=== PATIENT | female | born 1985 | race Asian ===

== ENCOUNTER 2017-04-02 02:56 | Emergency (ER) | payer MEDICARE ==
[~2017-04-02 02:56] MED LIST: BOSE125T PO; HYDR200T PO; MACI10TA PO; PRED1TAB PO; SELEXIPAG; SPIR25TA PO; TADA20TA33 PO; TREP1.743 INH
[2017-04-02] MEDS ORDERED: DIPHENHYDRAMINE 25 MG CAPSULE ONE (05:21)
[2017-04-02] MEDS ORDERED: DIPHENHYDRAMINE 50 MG CAPSULE ONE (05:22)
== END 2017-04-02 13:34 | disposition home or self-care (01) ==
LOC: ED 03:40
DX: T78.40XA Allergy, unspecified, initial encounter (principal); R21 Rash and other nonspecific skin eruption; I27.2 Other secondary pulmonary hypertension; X58.XXXA Exposure to other specified factors, initial encounter
CPT/HCPCS: 99283

== ENCOUNTER 2017-10-26 07:24 | Emergency (ER) | payer MEDICARE ==
[~2017-10-26] VITALS: Ht 170.2 cm; Wt 92.4 kg
[~2017-10-26 07:24] MED LIST changes: -HYDR200T PO; +HYDR200T72 PO
[2017-10-26] MEDS ORDERED: HYDR200T72 PO (07:55)
[2017-10-26 09:37] VITALS: BP 130/77
== END 2017-10-26 09:38 | disposition home or self-care (01) ==
LOC: ED 09:32
DX: J18.9 Pneumonia, unspecified organism (principal); J02.9 Acute pharyngitis, unspecified
CPT/HCPCS: 71046; 87081; 87880; 93005; 99285

== ENCOUNTER 2018-09-01 04:38 | Emergency (ER) | payer MEDICARE ==
[~2018-09-01] VITALS: Ht 170.2 cm; Wt 81.0 kg
--- NOTE | 2018-09-01 05:00 | NUR ---
HAVING CHEST DISCOMFORT D/T COUGH FOR ONE WEEK VSS STABLE PT STATED PT HAVING CHEST DISCOMFORT WHEN DEEP BREATHING OR COUGH KIRAN MARTI AT BED SIDE FOR ER EVAL
[2018-09-01] MEDS ORDERED: KETOROLAC 30 MG/1 ML ONE (05:13)
[2018-09-01] MEDS ORDERED: ONDANSETRON 2MG/ML, 2ML ONE (05:13)
[2018-09-01 05:26] LABS: BASOPHILS # (AUTO) 0.01 x10^3/uL (0-0.1); BASOPHILS % (AUTO) 0 % (0-1); EOSINOPHILS # (AUTO) 0.12 x10^3/uL (0-0.4); EOSINOPHILS % (AUTO) 2 % (1-7); LYMPHOCYTES # (AUTO) 0.87 x10^3/uL (1-3.4); LYMPHOCYTES % (AUTO) 17 % (22-44); MD NO; MEAN CORPUSCULAR HEMOGLOBIN 20.2 pg (27.0-34.8); MEAN CORPUSCULAR VOLUME 65.1 fL (80-100); MEAN PLATELET VOLUME 8.2 fL (7.4-10.4); MONOCYTES # (AUTO) 0.37 x10^3/uL (0.2-0.8); MONOCYTES % (AUTO) 7 % (2-9); NEUTROPHILS # (AUTO) 3.81 x10^3/uL (1.8-6.8); NEUTROPHILS % (AUTO) 74 % (42-75); PLATELET COUNT 162 x10^3/uL (130-400); RED BLOOD COUNT 4.43 x10^6/uL (3.82-5.3); RED CELL DISTRIBUTION WIDTH 18.5 % (9.6-15.2)
[2018-09-01] MEDS ORDERED: SODIUM CHLORIDE FLUSH 10ML SYR IVF ONE (05:30)
[2018-09-01] MEDS ORDERED: ONDANSETRON 2MG/ML, 2ML IVPush ONE (05:30)
[2018-09-01] MEDS ORDERED: KETOROLAC 30 MG/1 ML IVPush ONE (05:30)
--- NOTE | 2018-09-01 05:34 | NUR ---
GIVEN ALL MEDS PT IS RESTING
[2018-09-01 05:37] LABS: ALBUMIN 2.8 g/dL (3.4-5.0); ANION GAP 7 mmol/L (5-15); CALCIUM 8.4 mg/dL (8.5-10.1); CHLORIDE 110 mmol/L (98-107); CREATININE 0.76 mg/dL (0.55-1.02)
[2018-09-01 05:40] LABS: TROPONIN I 0.018 ng/mL (0.000-0.045)
--- NOTE | 2018-09-01 06:30 | NUR ---
GIVEN DC INSTRUCTION IV WAS OUT PT UNDERSTOOD PT UP AMBULATED TO CHECK OUT WITH FAMILY
[2018-09-01 06:31] VITALS: BP 116/62
== END 2018-09-01 06:33 | disposition home or self-care (01) ==
LOC: ED 06:23
DX: R07.89 Other chest pain (principal); B34.9 Viral infection, unspecified; I10 Essential (primary) hypertension
CPT/HCPCS: 36415; 71046; 80048; 82040; 83880; 84484; 85025; 93005; 96374; 96375; 99284; J1885; J2405; 96372

== ENCOUNTER 2018-11-20 08:00 | Day surgery (SDC) | payer MEDICARE, MEDICAID ==
[2018-11-18 10:01] VITALS: BP 115/69
[2018-11-18 10:24] LABS: MEAN CORPUSCULAR HEMOGLOBIN 25.6 pg (27.0-34.8); MEAN CORPUSCULAR HGB CONC 32.2 g/dL (32.4-35.8); MEAN CORPUSCULAR VOLUME 79.3 fL (80-100); MEAN PLATELET VOLUME 7.8 fL (7.4-10.4); PLATELET COUNT 189 x10^3/uL (130-400); RED BLOOD COUNT 3.96 x10^6/uL (3.82-5.3); RED CELL DISTRIBUTION WIDTH 23.8 % (9.6-15.2)
[2018-11-18 10:26] LABS: INTERNATIONAL NORMALIZED RATIO 1.03 (0.93-1.1); PROTHROMBIN TIME 10.8 Seconds (9.6-11.5)
[2018-11-18 10:27] LABS: ANION GAP 7 mmol/L (5-15); CALCIUM 7.9 mg/dL (8.5-10.1); CHLORIDE 108 mmol/L (98-107); CREATININE 0.59 mg/dL (0.55-1.02)
[2018-11-18 10:44] LABS: BASOPHILS % (AUTO) 0 % (0-1); EOSINOPHILS # (AUTO) 0.14 x10^3/uL (0-0.4); EOSINOPHILS % (AUTO) 3 % (1-7); LYMPHOCYTES # (AUTO) 0.59 x10^3/uL (1-3.4); LYMPHOCYTES % (AUTO) 13 % (22-44); MD MORPH REVIEW ONLY; MONOCYTES % (AUTO) 7 % (2-9); NEUTROPHILS # (AUTO) 3.46 x10^3/uL (1.8-6.8); NEUTROPHILS % (AUTO) 77 % (42-75)
[2018-11-18 10:45] LABS: ANISOCYTOSIS 1+; MICROCYTOSIS 1+
[2018-11-18 10:46] LABS: <PLATELET ESTIMATE> ADEQUATE; <PLT MORPHOLOGY> NORMAL PLT MORPH; HYPOCHROMIA 1+; OVALOCYTES 1+
[~2018-11-20] VITALS: Ht 172.7 cm; Wt 80.9 kg
[~2018-11-20 08:00] MED LIST changes: +FERR-46 PO; +VERA120T5 PO
[2018-11-20] MEDS ORDERED: MIDAZOLAM 1 MG/ML, 2ML ONE (08:24)
[2018-11-20] MEDS ORDERED: HEPARIN 1,000 UNITS/ML, 10ML ONE (08:24)
[2018-11-20] MEDS ORDERED: FENTANYL PF 100 MCG/2ML ONE (08:24)
[2018-11-20] MEDS ORDERED: LIDOCAINE-MPF 1%, 5ML ONE (08:25)
[2018-11-20] MEDS ORDERED: DIPHENHYDRAMINE 50 MG/ML, 1ML ONE (08:26)
[2018-11-20] MEDS ORDERED: DIPHENHYDRAMINE 50 MG/ML, 1ML IVPush ONE (08:30)
[2018-11-20] MEDS ORDERED: ONDANSETRON 2MG/ML, 2ML ONE (09:11)
[2018-11-20] MEDS ORDERED: BUME1TAB21 PO (09:51)
[2018-11-20] MEDS ORDERED: SPIR25TA PO (09:52)
== END 2018-11-20 11:57 | disposition home or self-care (01) ==
LOC: CACL 08:00
PROVIDERS: ATTEND Internal Medicine Cardiovascular Disease
DX: I27.0 Primary pulmonary hypertension (principal); M32.9 Systemic lupus erythematosus, unspecified; D64.9 Anemia, unspecified; Z79.82 Long term (current) use of aspirin; Z79.84 Long term (current) use of oral hypoglycemic drugs
CPT/HCPCS: 36415; 80048; 85025; 85610; 93451; C1769; C1894; J1200; J2405; J1644; J2250; J3010

== ENCOUNTER 2019-01-25 12:55 | Outpatient (CLI) | payer MEDICARE, MEDICAID ==
[~2019-01-25 12:55] MED LIST changes: +BUME1TAB21 PO
== END 2019-01-25 23:59 | disposition home or self-care (01) ==
LOC: CARD 12:55
PROVIDERS: ATTEND Internal Medicine Cardiovascular Disease
DX: R06.02 Shortness of breath (principal)
CPT/HCPCS: 94060; 94726; 94729

== ENCOUNTER 2019-10-11 14:09 | Outpatient (CLI) | payer MEDICARE, MEDICAID ==
[~2019-10-11 14:09] MED LIST changes: -PRED1TAB PO; +PRED1TAB19 PO; +VERA120T13 PO; -VERA120T5 PO
== END 2019-10-11 23:59 | disposition home or self-care (01) ==
LOC: CARD 14:09
PROVIDERS: ATTEND Internal Medicine Cardiovascular Disease
DX: R06.02 Shortness of breath (principal)
CPT/HCPCS: 94010; 94726; 94729

== ENCOUNTER 2020-03-16 21:57 | Emergency (ER) | payer MEDICAID, MEDICARE ==
[~2020-03-16] VITALS: Ht 170.2 cm; Wt 90.2 kg
--- NOTE | 2020-03-16 22:19 | NUR ---
THIS IS A 34 YO F W/ C/O COUGH, CP, SOB W/ EXERTION, FATIGUE AND NAUSEA. PT REPORTS SHE WAS TESTED FOR COVID YESTERDAY, PENDING RESULTS. PT DENIES ABD PAIN, SYMPTOMS. PT RESTING ON GURNEY W/ CALL LIGHT IN REACH, CONNECTED TO MONITOING. PT TACHYCARDIC, OTHER VS WDL. IN ROOM FOR ED EVAL. FAMILY AT BEDSIDE. AWAITING ORDERS.
--- NOTE | 2020-03-16 22:45 | NUR ---
LAB IN ROOM.
[2020-03-16 23:00] LABS: BASOPHILS # (AUTO) 0.05 x10^3/uL (0-0.1); BASOPHILS % (AUTO) 1 % (0-1); EOSINOPHILS # (AUTO) 0.11 x10^3/uL (0-0.4); EOSINOPHILS % (AUTO) 2 % (1-7); LYMPHOCYTES # (AUTO) 0.45 x10^3/uL (1-3.4); LYMPHOCYTES % (AUTO) 10 % (22-44); MD NO; MEAN CORPUSCULAR HEMOGLOBIN 26.7 pg (27.0-34.8); MEAN CORPUSCULAR HGB CONC 32.2 g/dL (32.4-35.8); MEAN CORPUSCULAR VOLUME 82.8 fL (80-100); MEAN PLATELET VOLUME 8.1 fL (7.4-10.4); MONOCYTES # (AUTO) 0.25 x10^3/uL (0.2-0.8); MONOCYTES % (AUTO) 5 % (2-9); NEUTROPHILS # (AUTO) 3.91 x10^3/uL (1.8-6.8); NEUTROPHILS % (AUTO) 82 % (42-75); PLATELET COUNT 207 x10^3/uL (130-400); RED BLOOD COUNT 4.63 x10^6/uL (3.82-5.3); RED CELL DISTRIBUTION WIDTH 14.4 % (9.6-15.2)
[2020-03-16 23:10] LABS: ANION GAP 7 mmol/L (5-15); CALCIUM 8.2 mg/dL (8.5-10.1); CHLORIDE 100 mmol/L (98-107)
[2020-03-16 23:18] LABS: ALANINE AMINOTRANSFERASE 9 U/L (12-78); ALKALINE PHOSPHATASE 52 U/L (45-117); BILIRUBIN,TOTAL 0.4 mg/dL (0.2-1.0); CREATININE 1.55 mg/dL (0.55-1.02); TROPONIN I < 0.015 ng/mL (0.000-0.045)
[2020-03-17 00:03] VITALS: BP 101/67
== END 2020-03-17 00:13 | disposition home or self-care (01) ==
LOC: ED 23:00
DX: R07.89 Other chest pain (principal); R00.2 Palpitations; R10.9 Unspecified abdominal pain; R94.31 Abnormal electrocardiogram [ECG] [EKG]; I10 Essential (primary) hypertension
CPT/HCPCS: 36415; 71045; 80053; 83735; 84443; 84484; 85025; 93005; 99285

== ENCOUNTER 2020-11-22 23:56 | Emergency (ER) | payer MEDICARE, MEDICAID ==
[~2020-11-22] VITALS: Ht 170.2 cm; Wt 76.0 kg
--- NOTE | 2020-11-23 00:12 | NUR ---
Patient presents to ER c/o CP and SOB since yesterday. Patient has no cardiac hx. +nausea; denies vomiting. Patient in NAD. Respirations even and unlabored.
[2020-11-23] MEDS ORDERED: SODIUM CHLORIDE FLUSH 10ML SYR IVF ONE (00:30)
[2020-11-23 00:53] LABS: BASOPHILS % (AUTO) 0 % (0-1); EOSINOPHILS % (AUTO) 2 % (1-7); LYMPHOCYTES % (AUTO) 10 % (22-44); MEAN CORPUSCULAR HEMOGLOBIN 25.2 pg (27.0-34.8); MEAN CORPUSCULAR HGB CONC 32.7 g/dL (32.4-35.8); MEAN PLATELET VOLUME 7.6 fL (7.4-10.4); MONOCYTES % (AUTO) 6 % (2-9); NEUTROPHILS % (AUTO) 82 % (42-75); PLATELET COUNT 317 x10^3/uL (130-400); RED BLOOD COUNT 4.31 x10^6/uL (3.82-5.3); RED CELL DISTRIBUTION WIDTH 15.5 % (9.6-15.2)
[2020-11-23 00:57] LABS: ALANINE AMINOTRANSFERASE 8 U/L (12-78); ALBUMIN 3.4 g/dL (3.4-5.0); ANION GAP 7 mmol/L (5-15); CALCIUM 8.8 mg/dL (8.5-10.1); CHLORIDE 99 mmol/L (98-107); CREATININE 2.35 mg/dL (0.55-1.02)
[2020-11-23 01:01] LABS: MD NO
[2020-11-23 01:02] LABS: ALKALINE PHOSPHATASE 63 U/L (45-117); BILIRUBIN,TOTAL 0.3 mg/dL (0.2-1.0); TOTAL PROTEIN 9.6 g/dL (6.4-8.2); TROPONIN I < 0.015 ng/mL (0.000-0.045)
[2020-11-23 02:39] VITALS: BP 102/67
--- NOTE | 2020-11-23 02:42 | NUR ---
Patient/Caregiver given discharge instructions and they have confirmed that they understand the instructions. Patient ambulatory with steady gait.
== END 2020-11-23 02:42 | disposition home or self-care (01) ==
LOC: ED 11-23 02:20
DX: N28.9 Disorder of kidney and ureter, unspecified (principal); D63.1 Anemia in chronic kidney disease; R07.2 Precordial pain; R06.02 Shortness of breath
CPT/HCPCS: 36415; 71045; 80053; 83880; 84484; 84703; 85025; 93005; 99285